=== PATIENT | male | born 1960 | race African-American/Black ===

== ENCOUNTER 2018-06-02 09:57 | Inpatient (IN) | payer MEDICARE, MEDICAID ==
[~2018-06-02] VITALS: Ht 157.5 cm; Wt 70.3 kg
[2018-06-02] VITALS (27 sets, daily range): BP systolic 86–125; BP diastolic 52–77
[2018-06-02] MEDS ORDERED: ACETAMINOPHEN 325MG TABLET PO STA (10:28)
[2018-06-02] MEDS ORDERED: SODIUM CHLORIDE 0.9% 1000ML BAG (SEPSIS BOLUS) IV ONE (10:30)
[2018-06-02] MEDS ORDERED: PIPERACILLIN/TAZ 3.375G PREMIX 50 ML IV ONE (10:45)
[2018-06-02] MEDS ORDERED: VANCOMYCIN 1 G PREMIX 200 ML IV SCH (10:45)
[2018-06-02 11:11] LABS: CHLORIDE 108 mEq/L (98-107)
[2018-06-02 11:12] LABS: MEAN CORPUSCULAR HEMOGLOBIN 17.2 pg (28.0-32.0); MEAN CORPUSCULAR VOLUME 58.6 fL (80.0-94.0); MEAN PLATELET VOLUME 6.2 fl (7.4-10.4); PLATELET 752 x1000/uL (130-400); RED BLOOD CELL COUNT 2.83 mill/uL (4.7-6.1); RED CELL DISTRIBUTION WIDTH 24.3 % (11.6-14.6)
[2018-06-02 11:15] LABS: INR 1.2; PROTHROMBIN TIME 11.8 sec (9.1-11.1)
[2018-06-02 11:16] LABS: ETHANOL BLOOD < 10 mg/dL; HEMATOCRIT. 16.6 % (42.0-52.0); HEMOGLOBIN. 4.9 g/dL (14.0-18.0)
[2018-06-02 11:23] LABS: CLARITY URINE TURBID (CLEAR); COLOR URINE YELLOW (YELLOW); KETONES URINE NEGATIVE (NEGATIVE); LEUKOCYTE ESTERASE URINE 3+ (NEGATIVE); NITRITE URINE NEGATIVE (NEGATIVE); OCCULT BLOOD URINE NEGATIVE (NEGATIVE); PH URINE >=9.0 (4.5-8.0); PROTEIN URINE 1+ (NEGATIVE); SPECIFIC GRAVITY URINE 1.014 (1.005-1.030)
[2018-06-02 11:39] LABS: *AMPHETAMINES SCREEN URINE NEGATIVE (NEGATIVE); *BENZODIAZEPINES SCREEN URINE NEGATIVE (NEGATIVE); *COCAINE SCREEN URINE NEGATIVE (NEGATIVE)
[2018-06-02 11:40] LABS: *BARBITURATES SCREEN URINE NEGATIVE (NEGATIVE); CANNABINOID URINE SCREEN NEGATIVE (NEGATIVE); METHADONE URINE SCREEN NEGATIVE (NEGATIVE); OPIATES URINE SCREEN NEGATIVE (NEGATIVE); PHENCYCLIDINE URINE SCREEN NEGATIVE (NEGATIVE)
[2018-06-02 11:48] LABS: PLATELET ESTIMATE INCREASED
[2018-06-02 12:12] LABS: TOTAL IRON BINDING CAPACITY 131 ug/dL (250-450)
[2018-06-02] MEDS ORDERED: PIPERACILLIN/TAZ 3.375G PREMIX 50 ML IV SCH (15:45)
[2018-06-02] MEDS ORDERED: HYDROMORPHONE HCL/PF 2MG/ML CPJ IV PRN (16:45)
[2018-06-02] MEDS ORDERED: GUAIFENESIN 200MG/10ML SUGAR FREE UDC PO PRN (16:45)
[2018-06-02] MEDS ORDERED: ACETAMINOPHEN 325MG TABLET PO PRN (16:45)
[2018-06-02] MEDS ORDERED: DOCUSATE SODIUM 100MG CAPSULE PO PRN (16:45)
[2018-06-02] MEDS ORDERED: CLONIDINE 0.1MG TABLET PO PRN (16:45)
[2018-06-02] MEDS ORDERED: HYDROCODONE/ACETAMINOPHEN 5/325MG TABLET PO PRN (16:45)
[2018-06-02] MEDS ORDERED: ONDANSETRON HCL 4MG/2ML INJ IV PRN (16:45)
[2018-06-02] MEDS ORDERED: ENOXAPARIN 40MG/0.4ML SYR SUBCUT SCH (18:00)
[2018-06-02] MEDS: SODIUM CHLORIDE 0.45% 1,000 ML IV SCH (18:47)
[2018-06-02] MEDS: VANCOMYCIN 750 MG PREMIX 150 ML IV SCH (20:39)
[2018-06-02] MEDS: PIPERACILLIN/TAZ 3.375G PREMIX 50 ML IV SCH (21:07)
[2018-06-03] VITALS (71 sets, daily range): BP systolic 87–148; BP diastolic 38–99
[2018-06-03 02:57] LABS: MEAN CORPUSCULAR VOLUME 65.6 fL (80.0-94.0); PLATELET 579 x1000/uL (130-400); RED BLOOD CELL COUNT 2.73 mill/uL (4.7-6.1); RED CELL DISTRIBUTION WIDTH 30.5 % (11.6-14.6)
[2018-06-03 03:00] LABS: HEMATOCRIT 17.9 % (42.0-52.0); HEMOGLOBIN 5.5 g/dL (14.0-18.0)
[2018-06-03 05:34] LABS: CHLORIDE 113 mEq/L (98-107)
[2018-06-03 05:35] LABS: MEAN CORPUSCULAR HEMOGLOBIN 20.5 pg (28.0-32.0); MEAN CORPUSCULAR VOLUME 65.2 fL (80.0-94.0); MEAN PLATELET VOLUME 6.5 fl (7.4-10.4); PLATELET 588 x1000/uL (130-400); RED BLOOD CELL COUNT 2.84 mill/uL (4.7-6.1); RED CELL DISTRIBUTION WIDTH 30.6 % (11.6-14.6)
[2018-06-03 05:51] LABS: LDL CHOLESTEROL 46 mg/dL (5-100)
[2018-06-03 05:55] LABS: HDL CHOLESTEROL 19 mg/dL (40-59)
[2018-06-03 06:03] LABS: HEMATOCRIT. 18.5 % (42.0-52.0); HEMOGLOBIN. 5.8 g/dL (14.0-18.0)
[2018-06-03] MEDS: PIPERACILLIN/TAZ 3.375G PREMIX 50 ML IV SCH ×2 (06:35→15:00)
[2018-06-03 09:39] LABS: PLATELET ESTIMATE INCREASED
[2018-06-03] MEDS: FERROUS SULFATE 325MG TABLET PO SCH (10:11)
[2018-06-03] MEDS: MULTIVITAMINS,THER W-MINERALS TABLET PO SCH (10:13)
[2018-06-03] MEDS: SODIUM CHLORIDE 0.45% 1,000 ML IV SCH (10:25)
[2018-06-03] MEDS: SODIUM HYPOCHLORITE 0.125% 473ML SOLUTION TOP SCH (13:00)
[2018-06-03 15:57] LABS: HEMATOCRIT 23.3 % (42.0-52.0); HEMOGLOBIN 7.4 g/dL (14.0-18.0)
[2018-06-03] MEDS: VANCOMYCIN 750 MG PREMIX 150 ML IV SCH (16:00)
[2018-06-04] MEDS: PIPERACILLIN/TAZ 3.375G PREMIX 50 ML IV SCH ×3 (02:11→16:18)
[2018-06-04 02:16] LABS: HEMATOCRIT 26.7 % (42.0-52.0); HEMOGLOBIN 8.6 g/dL (14.0-18.0)
[2018-06-04 04:00] VITALS: BP 136/114
[2018-06-04 07:21] LABS: HEMATOCRIT. 25.7 % (42.0-52.0); HEMOGLOBIN. 8.4 g/dL (14.0-18.0); MEAN CORPUSCULAR HEMOGLOBIN 23.2 pg (28.0-32.0); MEAN CORPUSCULAR VOLUME 71.1 fL (80.0-94.0); MEAN PLATELET VOLUME 6.4 fl (7.4-10.4); PLATELET 567 x1000/uL (130-400); RED BLOOD CELL COUNT 3.61 mill/uL (4.7-6.1); RED CELL DISTRIBUTION WIDTH 31.6 % (11.6-14.6)
[2018-06-04 08:00] VITALS: BP 127/47
[2018-06-04] MEDS: MULTIVITAMINS,THER W-MINERALS TABLET PO SCH (08:44)
[2018-06-04] MEDS: FERROUS SULFATE 325MG TABLET PO SCH (08:44)
[2018-06-04] MEDS: SODIUM HYPOCHLORITE 0.125% 473ML SOLUTION TOP SCH ×3 (09:00→11:59)
[2018-06-04] MEDS ORDERED: LIDOCAINE HCL/EPINEPHRINE 1%-EPI 1:100,000 20 ML VIAL INFIL ONE (10:30)
[2018-06-04 12:00] VITALS: BP 123/75
[2018-06-04 14:01] LABS: NUCLEATED RED BLOOD CELLS 1 /100 WBC
[2018-06-04 14:02] LABS: PLATELET ESTIMATE INCREASED
[2018-06-04 16:00] VITALS: BP 135/77
[2018-06-04] MEDS: SODIUM CHLORIDE 0.45% 1,000 ML IV SCH ×2 (19:45→22:14)
[2018-06-04 20:00] VITALS: BP 118/64
[2018-06-04] MEDS: VANCOMYCIN 750 MG PREMIX 150 ML IV SCH (22:11)
[2018-06-05] VITALS: BP 121/69
[2018-06-05] MEDS: PIPERACILLIN/TAZ 3.375G PREMIX 50 ML IV SCH ×3 (00:07→17:56)
[2018-06-05 04:00] VITALS: BP 136/79
[2018-06-05 08:00] VITALS: BP 125/80
[2018-06-05] MEDS: FERROUS SULFATE 325MG TABLET PO SCH (09:00)
[2018-06-05] MEDS: SODIUM HYPOCHLORITE 0.125% 473ML SOLUTION TOP SCH ×2 (09:00)
[2018-06-05] MEDS: MULTIVITAMINS,THER W-MINERALS TABLET PO SCH (09:00)
[2018-06-05 12:00] VITALS: BP 117/72
[2018-06-05] MEDS: SODIUM CHLORIDE 0.45% 1,000 ML IV SCH (13:11)
[2018-06-05 16:00] VITALS: BP 123/77
[2018-06-05 20:00] VITALS: BP 112/67
[2018-06-05] MEDS: VANCOMYCIN 750 MG PREMIX 150 ML IV SCH (23:16)
[2018-06-06] VITALS: BP 123/66
[2018-06-06] MEDS: PIPERACILLIN/TAZ 3.375G PREMIX 50 ML IV SCH ×3 (01:07→17:02)
[2018-06-06 04:00] VITALS: BP 120/67
[2018-06-06] MEDS: SODIUM HYPOCHLORITE 0.125% 473ML SOLUTION TOP SCH ×2 (06:16→08:47)
[2018-06-06 08:00] VITALS: BP 117/70
[2018-06-06] MEDS: MULTIVITAMINS,THER W-MINERALS TABLET PO SCH (08:45)
[2018-06-06] MEDS: FERROUS SULFATE 325MG TABLET PO SCH (08:45)
[2018-06-06 12:00] VITALS: BP 122/67
[2018-06-06 15:32] LABS: HEMATOCRIT. 26.7 % (42.0-52.0); HEMOGLOBIN. 8.4 g/dL (14.0-18.0); MEAN CORPUSCULAR HEMOGLOBIN 22.9 pg (28.0-32.0); MEAN PLATELET VOLUME 6.1 fl (7.4-10.4); PLATELET 523 x1000/uL (130-400); RED BLOOD CELL COUNT 3.65 mill/uL (4.7-6.1); RED CELL DISTRIBUTION WIDTH 33.5 % (11.6-14.6)
[2018-06-06 15:39] LABS: CHLORIDE 109 mEq/L (98-107)
[2018-06-06 16:00] VITALS: BP 116/69
[2018-06-06 20:00] VITALS: BP 114/65
[2018-06-06 21:06] LABS: PLATELET ESTIMATE INCREASED
[2018-06-06] MEDS: VANCOMYCIN 750 MG PREMIX 150 ML IV SCH (22:03)
[2018-06-07] VITALS: BP 124/68
[2018-06-07] MEDS: PIPERACILLIN/TAZ 3.375G PREMIX 50 ML IV SCH ×2 (01:03→08:50)
[2018-06-07 04:00] VITALS: BP 127/72
[2018-06-07 07:02] LABS: HEMATOCRIT. 27.4 % (42.0-52.0); HEMOGLOBIN. 8.4 g/dL (14.0-18.0); MEAN CORPUSCULAR HEMOGLOBIN 22.3 pg (28.0-32.0); MEAN CORPUSCULAR VOLUME 73.1 fL (80.0-94.0); MEAN PLATELET VOLUME 6.4 fl (7.4-10.4); PLATELET 556 x1000/uL (130-400); RED BLOOD CELL COUNT 3.75 mill/uL (4.7-6.1); RED CELL DISTRIBUTION WIDTH 33.9 % (11.6-14.6)
[2018-06-07 08:00] VITALS: BP 108/70
[2018-06-07] MEDS: MULTIVITAMINS,THER W-MINERALS TABLET PO SCH (08:50)
[2018-06-07] MEDS: SODIUM HYPOCHLORITE 0.125% 473ML SOLUTION TOP SCH ×2 (08:50)
[2018-06-07] MEDS: FERROUS SULFATE 325MG TABLET PO SCH (08:50)
[2018-06-07 12:00] VITALS: BP 116/66
[2018-06-07 12:21] LABS: PLATELET ESTIMATE INCREASED
[2018-06-07] MEDS ORDERED: CEFTRIAXONE 2 G PREMIX 50 ML IV SCH (12:30)
[2018-06-07] MEDS ORDERED: LIDOCAINE HCL/EPINEPHRINE 1%-EPI 1:100,000 20 ML VIAL INFIL NR (13:00)
[2018-06-07] MEDS: CEFTRIAXONE 2 G in DEXTROSE 5% WATER 50 ML IV SCH (14:37)
[2018-06-07] MEDS: METRONIDAZOLE 500 MG PREMIX 100 ML IV SCH (14:38)
[2018-06-07 16:00] VITALS: BP 118/62
[2018-06-07 20:00] VITALS: BP 122/74
[2018-06-08] VITALS: BP_SYST 118; BP_SYST 136; BP_DIAS 67; BP_DIAS 73
[2018-06-08 04:00] VITALS: BP 122/76
[2018-06-08] MEDS: METRONIDAZOLE 500 MG PREMIX 100 ML IV SCH ×3 (05:09→21:40)
[2018-06-08 08:00] VITALS: BP 109/61
[2018-06-08] MEDS: CEFTRIAXONE 2 G in DEXTROSE 5% WATER 50 ML IV SCH (12:32)
[2018-06-08] MEDS: FERROUS SULFATE 325MG TABLET PO SCH (12:33)
[2018-06-08] MEDS: SODIUM CHLORIDE 0.45% 1,000 ML IV SCH ×2 (12:33→22:06)
[2018-06-08] MEDS: MULTIVITAMINS,THER W-MINERALS TABLET PO SCH (12:33)
[2018-06-08] MEDS: SODIUM HYPOCHLORITE 0.125% 473ML SOLUTION TOP SCH (12:34)
[2018-06-08 20:00] VITALS: BP 124/74
[2018-06-09] VITALS: BP 123/74
[2018-06-09 04:00] VITALS: BP 110/69
[2018-06-09] MEDS: METRONIDAZOLE 500 MG PREMIX 100 ML IV SCH ×3 (05:35→21:43)
[2018-06-09] MEDS: FERROUS SULFATE 325MG TABLET PO SCH (08:28)
[2018-06-09] MEDS: MULTIVITAMINS,THER W-MINERALS TABLET PO SCH (08:28)
[2018-06-09] MEDS: SODIUM HYPOCHLORITE 0.125% 473ML SOLUTION TOP SCH (08:29)
[2018-06-09] MEDS: CEFTRIAXONE 2 G in DEXTROSE 5% WATER 50 ML IV SCH (14:09)
[2018-06-09 16:08] LABS: HEMATOCRIT. 27.2 % (42.0-52.0); HEMOGLOBIN. 8.5 g/dL (14.0-18.0); MEAN CORPUSCULAR HEMOGLOBIN 22.8 pg (28.0-32.0); MEAN CORPUSCULAR VOLUME 73.1 fL (80.0-94.0); MEAN PLATELET VOLUME 6.6 fl (7.4-10.4); PLATELET 496 x1000/uL (130-400); RED BLOOD CELL COUNT 3.72 mill/uL (4.7-6.1); RED CELL DISTRIBUTION WIDTH 33.9 % (11.6-14.6)
[2018-06-09 16:43] LABS: PLATELET ESTIMATE INCREASED
[2018-06-09] MEDS: SODIUM CHLORIDE 0.45% 1,000 ML IV SCH (16:44)
[2018-06-10 04:00] VITALS: BP 115/67
[2018-06-10] MEDS: METRONIDAZOLE 500 MG PREMIX 100 ML IV SCH ×2 (07:02→17:52)
[2018-06-10] MEDS: SODIUM HYPOCHLORITE 0.125% 473ML SOLUTION TOP SCH (07:03)
[2018-06-10 08:00] VITALS: BP 116/69
[2018-06-10] MEDS: FERROUS SULFATE 325MG TABLET PO SCH (09:00)
[2018-06-10] MEDS: MULTIVITAMINS,THER W-MINERALS TABLET PO SCH (09:00)
[2018-06-10 12:00] VITALS: BP 137/79
[2018-06-10] MEDS: CEFTRIAXONE 2 G in DEXTROSE 5% WATER 50 ML IV SCH (13:36)
[2018-06-10] MEDS ORDERED: SODIUM BICARBONATE 4% (2.4MEQ) 5ML VIAL IV ONE (13:49)
[2018-06-10] MEDS ORDERED: LIDOCAINE HCL 1% 20ML VIAL (Pyxis) INJ ONE (13:49)
[2018-06-10 16:00] VITALS: BP 121/74
[2018-06-10 18:12] VITALS: BP 127/89
== END 2018-06-10 18:45 | DRG 853 ==
LOC: ER 09:57 → MICUSO 11:24 → EDBEDREQ 11:32 → EDBEDREQSVC 11:47 → ENRESERV 15:29 → SUPCPDRO 16:30 → 7WST 06-04 00:15
PROVIDERS: ADMIT Hospitalist; ATTEND Hospitalist
PROC: 30233N1 Transfusion of Nonautologous Red Blood Cells into Peripheral Vein, Percutaneous Approach (ICD-10-PCS; 2018-06-02)
PROC: 0JBM0ZZ Excision of Left Upper Leg Subcutaneous Tissue and Fascia, Open Approach (ICD-10-PCS; principal; 2018-06-04)
PROC: 0JBL0ZZ Excision of Right Upper Leg Subcutaneous Tissue and Fascia, Open Approach (ICD-10-PCS; 2018-06-04)
PROC: 0JBM0ZZ Excision of Left Upper Leg Subcutaneous Tissue and Fascia, Open Approach (ICD-10-PCS; 2018-06-08)
PROC: 0JBL0ZZ Excision of Right Upper Leg Subcutaneous Tissue and Fascia, Open Approach (ICD-10-PCS; 2018-06-08)
PROC: 02HV33Z Insertion of Infusion Device into Superior Vena Cava, Percutaneous Approach (ICD-10-PCS; 2018-06-10)
PROC: B5181ZA Fluoroscopy of Superior Vena Cava using Low Osmolar Contrast, Guidance (ICD-10-PCS; 2018-06-10)
PROC: B548ZZA Ultrasonography of Superior Vena Cava, Guidance (ICD-10-PCS; 2018-06-10)
DX: A41.89 Other specified sepsis (principal); L89.324 Pressure ulcer of left buttock, stage 4; L89.314 Pressure ulcer of right buttock, stage 4; L89.894 Pressure ulcer of other site, stage 4; N17.0 Acute kidney failure with tubular necrosis; E46 Unspecified protein-calorie malnutrition; E87.1 Hypo-osmolality and hyponatremia; E87.2 Acidosis; G81.94 Hemiplegia, unspecified affecting left nondominant side; G82.20 Paraplegia, unspecified; M86.60 Other chronic osteomyelitis, unspecified site; J98.11 Atelectasis; E87.5 Hyperkalemia; I73.9 Peripheral vascular disease, unspecified; L89.159 Pressure ulcer of sacral region, unspecified stage; I87.2 Venous insufficiency (chronic) (peripheral); D63.8 Anemia in other chronic diseases classified elsewhere; L97.529 Non-pressure chronic ulcer of other part of left foot with unspecified severity; I12.9 Hypertensive chronic kidney disease with stage 1 through stage 4 chronic kidney disease, or unspecified chronic kidney disease; N18.9 Chronic kidney disease, unspecified; Z87.440 Personal history of urinary (tract) infections; Z99.3 Dependence on wheelchair; Z89.511 Acquired absence of right leg below knee; R74.0 Nonspecific elevation of levels of transaminase and lactic acid dehydrogenase [LDH]; Z68.28 Body mass index [BMI] 28.0-28.9, adult
CPT/HCPCS: 36415; 36569; 36573; 71045; 73590; 73630; 73721; 76770; 80048; 80061; 80202; 80305; 80320; 82550; 82962; 83540; 83550; 83605; 83880; 84134; 84145; 84484; 85014; 85018; 85027; 85044; 85651; 86140; 86850; 86900; 86920; 87070; 87075; 87076; 87077; 87186; 87804; 93005; 93923; 96365; 96366; 96367; 99291; C1725; J0696; J2543; J3370; J3490; J7030; J7040; J7050; J7060; P9016; G0480